=== PATIENT | male | born 1970 | race Caucasian/White ===

== ENCOUNTER → 2020-05-06 13:31 | Outpatient (CLI) | payer OTHER, SELFPAY ==
--- NOTE | 2020-05-06 13:33 | DI.RAD.S_ITS ---
PROCEDURE: XR KNEE RT 3V INDICATIONS: rt knee pain chronic surgery 20 years ago TECHNIQUE: 3 views of the knee were acquired. COMPARISON: None. FINDINGS: Bones: There is moderate medial femorotibial compartment narrowing. No acute fracture or dislocation. There is moderate patellofemoral narrowing. There are small tricompartmental osteophytes. Soft tissues: No joint effusion. No suspicious soft tissue calcifications. IMPRESSION: Moderate to severe osteoarthritis. Dictated by: Fabiola Wyatt M.D. on 05/06/2020 at 16:22 Approved by: Fabiola Wyatt M.D. on 05/06/2020 at 16:23
== END ==
PROVIDERS: Family Provider Family Medicine; PCP Family Medicine; Referring Provider Family Medicine; Visit Provider Family Medicine
DX: M25.561 Pain in right knee (principal); M17.11 Unilateral primary osteoarthritis, right knee; G89.29 Other chronic pain
CPT/HCPCS: 73562

== ENCOUNTER → 2023-06-15 12:03 | Outpatient (CLI) | payer OTHER, SELFPAY ==
--- NOTE | 2023-06-15 12:05 | DI.RAD.S_ITS ---
PROCEDURE: XR CERVICAL SPINE 2V OR 3V INDICATIONS: chronic neck pain viki L side TECHNIQUE: 3 view(s) of the cervical spine were acquired. COMPARISON: None. FINDINGS: Bones: No fractures or dislocations to the T1 level. The lateral masses of C1 appear intact on the odontoid view. No suspicious bony lesions. Minimal anterolisthesis of C5 on C6. Multilevel cervical spondylosis with degenerative endplate changes, mild disc space loss, and endplate osteophyte formation. Findings are most pronounced at C3-4, C4-5, and C5-6. Multilevel facet arthropathy most pronounced at C4-5 and C5-6. Craniocervical junction is intact. Soft tissues: No prevertebral soft tissue swelling. IMPRESSION: Cervical spine without acute fracture. Minimal anterolisthesis of C5 on C6 likely related to spondylitic changes. Multilevel cervical spondylosis most pronounced from C3-4 through C5-6. Dictated by: Emmett Rivera M.D. on 06/15/2023 at 14:01 Approved by: Emmett Rivera M.D. on 06/15/2023 at 14:03
== END ==
PROVIDERS: Family Provider Family Medicine; PCP Family Medicine; Referring Provider Physician Assistant; Visit Provider Physician Assistant
DX: G44.209 Tension-type headache, unspecified, not intractable (principal); M54.2 Cervicalgia; M47.812 Spondylosis without myelopathy or radiculopathy, cervical region; Z13.1 Encounter for screening for diabetes mellitus
CPT/HCPCS: 72040

== ENCOUNTER → 2023-06-22 07:22 | Outpatient (CLI) | payer OTHER, SELFPAY ==
[2023-06-22 07:50] LABS: Add Manual Diff / Slide Review NO; Basophils Absolute Auto 0 /uL (0-100); Basophils Percent Auto 0.7 % (0-2); Eosinophils Absolute Auto 200 /uL (0-450); Hematocrit 44.6 % (41-53); Lymphocytes Absolute Auto 3500 /uL (1100-4500); Lymphocytes Percent Auto 55.3 % (25-40); Mean Corpuscular HGB Conc 33.7 % (30-36); Mean Corpuscular Hemoglobin 31.2 PG (26-34); Mean Corpuscular Volume 92.7 fL (80-100); Monocytes Absolute Auto 700 /uL (0-900); Monocytes Percent Auto 11.1 % (3-14); Neutrophils Absolute Auto 1900 /uL (1500-7000); Neutrophils Percent Auto 29.9 % (50-75); Platelet Count 345 X10^3/uL (150-400); Red Blood Cell Count 4.81 X10^6/uL (4.5-5.9); Red Cell Distribution Width 13.8 % (11.6-14.8); White Blood Cell Count 6.3 X10^3/uL (4.5-11.0)
[2023-06-22 07:59] LABS: Hemoglobin A1C% w Est Avg Glu 5.9 % (4.0-6.0)
[2023-06-22 08:04] LABS: Alanine Aminotransferase 43 IU/L (<50); Albumin 4.1 g/dL (3.5-5.0); Albumin Globulin Ratio 1.2 (1.0-2.8); Alkaline Phosphatase 54 U/L (38-126); Aspartate Aminotransferase 32 IU/L (17-59); Bilirubin Total 0.7 mg/dL (0.2-1.3); Blood Urea Nitrogen 26 mg/dL (9-20); Calcium 9.6 mg/dL (8.4-10.2); Carbon Dioxide 28 mmol/L (22-32); Chloride 105 mmol/L (98-107); Cholesterol 180 mg/dL (140-199); Estimated Glomerular Filt Rate > 60 mL/min (>60); Globulin 3.5 g/dL (1.7-4.1); Glucose 100 mg/dL (70-100); HDL Cholesterol 43 mg/dL (40-60); HEMOLYSIS < 15 (0-50); LDL Cholesterol Calculated 113 mg/dL (<100); Potassium 5.2 mmol/L (3.4-5.1); Sodium 139 mmol/L (137-145); Total Protein 7.6 g/dL (6.3-8.2); Triglycerides 118 mg/dL (35-150)
[2023-06-22 08:35] LABS: TSH w/ Reflex to FT4 1.91 uIU/mL (0.47-4.68)
== END ==
PROVIDERS: Family Provider Family Medicine; PCP Family Medicine; Referring Provider Physician Assistant; Visit Provider Physician Assistant
DX: Z13.1 Encounter for screening for diabetes mellitus (principal); G44.209 Tension-type headache, unspecified, not intractable; M54.2 Cervicalgia
CPT/HCPCS: 36415; 80053; 80061; 83036; 84443; 85025

== ENCOUNTER 2023-08-31 12:02 | Day surgery (SDC) | payer OTHER, SELFPAY ==
--- NOTE | 2023-08-31 | PATH_ITS ---
[facility] Accession Number: [id number] No. of containers..05 Tissue . 01 Material submitted: . PART A: duodenum - DUODENUM PART B: stomach - ANTRUM PART C: stomach - FUNDUS BIOPSY PART D: esophagus, E-G Junction - GE JUNCTION PART E: rectum - RECTAL POLYP . 01 Diagnosis: A. DUODENUM, BIOPSY: Duodenal mucosa with no diagnostic abnormality. Negative for active inflammation, features of sprue, dysplasia, or malignancy. . B. ANTRUM, BIOPSY: Gastric mucosa with minimal chronic nonspecific inflammation. No Helicobacter pylori organisms identified on immunohistochemical evaluation. No intestinal metaplasia, dysplasia, or malignancy. . C. FUNDUS, BIOPSY: Gastric mucosa with focal mild active inflammation. No Helicobacter pylori organisms identified on immunohistochemical evaluation. No intestinal metaplasia, dysplasia, or malignancy. . D. GE JUNCTION, BIOPSY: Squamocolumnar junctional mucosa with proximal gastric glandular mucosa with goblet cell metaplasia. No dysplasia or malignancy. See comment. . E. RECTAL POLYP, BIOPSY: Colonic mucosa with benign lymphoid aggregate. No dysplasia or neoplasia identified. [facility] 09/04/2023 1136 Local . 01 Comment: D. 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 Correlation with the endoscopic appearance is recommended. . 01 Electronically signed: . Jade Connelly MD, Pathologist NPI- [id number] . 01 Gross description: . Part A: DUODENUM: Received in formalin is 2 fragment(s) of dsouza, soft tissue measuring 0.2 x 0.1 x 0.1 cm to 0.1 x 0.1 x 0.1 cm submitted entirely in 1 cassette(s) Part B: ANTRUM: Received in formalin is 3 fragment(s) of dsouza, soft tissue measuring 0.3 x 0.1 x 0.1 cm to 0.2 x 0.1 x 0.1 cm submitted entirely in 1 cassette(s) Part C: FUNDUS BIOPSY: Received in formalin is 3 fragment(s) of dsouza, soft tissue measuring 0.2 x 0.1 x 0.1 cm to 0.1 x 0.1 x 0.1 cm submitted entirely in 1 cassette(s) Part D: GE JUNCTION : Received in formalin is 2 fragment(s) of dsouza, soft tissue measuring 0.2 x 0.2 x 0.1 cm to 0.2 x 0.1 x 0.1 cm submitted entirely in 1 cassette(s) Part E: RECTAL POLYP : Received in formalin is 1 fragment(s) of dsouza, soft tissue measuring 0.2 x 0.1 x 0.1 cm submitted entirely in 1 cassette(s) /AAY 09/01/2023 0449 Local . 01 Microscopic: . B. An immunohistochemical stain was performed to evaluate for Helicobacter organisms and is negative. The control stain showed appropriate reactivity. . C. An immunohistochemical stain was performed to evaluate for Helicobacter organisms and is negative. The control stain showed appropriate reactivity. . . * This test was developed and its performance characteristics determined by [facility]. It has not been cleared or approved by the U.S. Food and Drug Administration. The FDA has determined that such clearance or approval is not necessary. This test is used for clinical purposes. It should not be regarded as investigational or for research. . 01 Pathologist provided ICD-10: K29.30, K29.70, K22.70, K63.89 . 01 CPT . 420533, 644087, 881508, 488291, 520958, G30462, [id number] Specimen Comment: A courtesy copy of this report has been sent to [phone] Performed at: 01 [facility] [address] [place] [address] [address] [facility], [place], [place] [id number] MD Amrit Haney MD Phone: [phone]
[2023-08-31 12:19] VITALS: BMI 48.7
[2023-08-31 12:23] VITALS: BP 152/83; PULSE 97; RESP 18; TEMP 36.4; O2SAT 97
--- NOTE | 2023-08-31 12:54 | PM.HP.1 ---
History of Present Illness History of Present Illness Date Patient Seen: 08/31/23 Time Patient Seen: 12:54 Chief complaint: EGD/Colonoscopy Narrative: Sushant is a 53-year-old man who is here for a EGD and colonoscopy for symptoms of dyspepsia and due for colon cancer screening. Please see the office note from June for details. No changes since then. PFS Surgical History Status post knee surgery History of splenectomy Status post appendectomy Social History marital status: Smoking Status: Never smoker alcohol intake: current substance use type: does not use Meds Home Medications and Allergies Home Medications Medication Instructions Recorded Confirmed Type omeprazole 20 mg capsule,delayed 20 mg PO QDAY@0600 #90 tabs 02/28/17 07/24/23 Rx release cyclobenzaprine 10 mg tablet 10 mg PO TID #30 tabs 06/15/23 07/24/23 Rx meloxicam 15 mg tablet 15 mg PO DAILY #30 tabs 06/15/23 07/24/23 Rx cdjfhje-rhjqgmstjudcc-xyaqiitd 250 2 tab PO Q6H PRN 07/13/23 07/24/23 History mg-250 mg-65 mg tablet (Excedrin Migraine) eletriptan 20 mg tablet See Rx Instructions PO .COMPLEX 07/13/23 07/24/23 Rx #14 tabs sodium sul 1.479 gram-potas ch See Rx Instructions PO PER PKG DIR 07/24/23 Rx 0.188 gram-magnes sul 0.225 gram #24 tabs tablet (Sutab) Allergies Allergy/AdvReac Type Severity Reaction Status Date / Time No Known Allergies Allergy Uncoded 07/24/23 15:42 Exam Vital Signs (past 8 hours): - 08/31/23 12:23 Temperature 97.6 F Pulse Rate 97 H Respiratory Rate 18 Blood Pressure 152/83 H Pulse Oximetry 97 Oxygen Delivery Method Room Air Oxygen Delivery Method Room Air Const Nutritional Appearance: obese Assessment & Plan Assessment and plan (1) Colon cancer screening: Status: Acute (2) Dyspepsia: Status: Acute Plan We reviewed the risks and benefits of EGD and colonoscopy and he would like to proceed.
[2023-08-31 13:45] VITALS: BP 112/78; PULSE 66; RESP 16; TEMP 36.2; O2SAT 99
--- NOTE | 2023-08-31 13:48 | PM.OP.EC ---
Operative Date/Time/Diagnoses Date of procedure: 08/31/23 Time of procedure: 13:48 Pre-op diagnosis: Dysphagia and colon cancer screening Post-op diagnosis: same Procedure & Clinicians Study performed: EGD and colonoscopy Same procedure as scheduled: Yes Surgeon: Ayaan Panda Procedure Notes Procedure in detail: Surgeon: Ayaan Panda MD Anesthesia: Ugo Alvarenga MD Procedure in detail: A timeout was performed. A bite blocked was placed and monitors were attached to the patient. The patient was positioned in the left lateral decubitus position. Sedation was administered. Once the patient was sedated the endoscope was inserted through the bite block and passed through the esophagus and stomach and into the duodenum. The second portion of the duodenal appeared normal however random biopsies were taken. We then withdrew the scope into the stomach. There was moderate antritis without any obvious ulceration. Biopsies were taken from the antrum. There was some gastritis near the fundus and biopsies were taken. The endoscope was retroflexed and no hiatal hernia was seen. The endoscope was straightned and withdrawn into the esophagus. There was some salmon-colored patches of mucosa near the GE junction and biopsies were taken from the GE junction. EGD findings: Antritis, gastritis and salmon-colored patches of mucosa at the GE junction Next we repositioned the patient for a colonoscopy. A digital rectal exam was performed and was normal. The colonoscope was inserted and advanced to the cecum. The appendiceal orifice was identified and photographed. The scope was slowly withdrawn over greater than 6 minutes. There was a 5 mm polyp in the upper rectum removed with a cold snare. The scope was retroflexed in the rectum and no other abnormalities were found. Colonoscopy findings: 5 mm polyp in the rectum Total procedural EBL: 5 mL Scope withdrawal time: 9 minutes Sedation minutes: 38 minutes Post-procedure Disposition: PACU
[2023-08-31 13:50] VITALS: BP 112/78; PULSE 68; RESP 16; TEMP 36.2; O2SAT 98
[2023-08-31 13:55] VITALS: BP 110/78; PULSE 60; RESP 16; O2SAT 98
[2023-08-31 14:00] VITALS: BP 112/78; PULSE 59; RESP 16; TEMP 36.8; O2SAT 98
== END 2023-08-31 14:20 | disposition home or self-care (01) ==
PROVIDERS: Family Provider Family Medicine; PCP Family Medicine; Referring Provider Surgery; Visit Provider Surgery
PROC: 0DJ08ZZ Inspection of Upper Intestinal Tract, Via Natural or Artificial Opening Endoscopic (ICD-10-PCS; CPT 43235; principal; 2023-08-31 13:00)
PROC: 0DJD8ZZ Inspection of Lower Intestinal Tract, Via Natural or Artificial Opening Endoscopic (ICD-10-PCS; CPT 45378; 2023-08-31 13:00)
DX: Z12.11 Encounter for screening for malignant neoplasm of colon (principal); R10.13 Epigastric pain; K29.50 Unspecified chronic gastritis without bleeding; K22.70 Barrett's esophagus without dysplasia; K62.1 Rectal polyp
CPT/HCPCS: 45385; 43239; J2704

== ENCOUNTER → 2024-04-05 15:01 | Outpatient (CLI) | payer OTHER, SELFPAY ==
[2024-04-05 16:49] LABS: Hemoglobin A1C% w Est Avg Glu 5.7 % (4.0-6.0)
[2024-04-05 17:08] LABS: Alanine Aminotransferase 33 IU/L (<50); Albumin 4.1 g/dL (3.5-5.0); Albumin Globulin Ratio 1.2 (1.0-2.8); Alkaline Phosphatase 50 U/L (38-126); Aspartate Aminotransferase 30 IU/L (17-59); BUN Creatinine Ratio 25.5 (6-22); Bilirubin Total 0.4 mg/dL (0.2-1.3); Blood Urea Nitrogen 28 mg/dL (9-20); Calcium 9.6 mg/dL (8.4-10.2); Carbon Dioxide 28 mmol/L (22-32); Chloride 103 mmol/L (98-107); Estimated Glomerular Filt Rate > 60 mL/min (>60); Globulin 3.5 g/dL (1.7-4.1); Glucose 89 mg/dL (70-100); HEMOLYSIS < 15 (0-50); Potassium 4.8 mmol/L (3.4-5.1); Sodium 138 mmol/L (137-145); Total Protein 7.6 g/dL (6.3-8.2)
== END ==
PROVIDERS: Family Provider Family Medicine; PCP Family Medicine; Referring Provider Student in an Organized Health Care Education/Training Program; Visit Provider Student in an Organized Health Care Education/Training Program
DX: R73.03 Prediabetes (principal); E66.01 Morbid (severe) obesity due to excess calories
CPT/HCPCS: 36415; 80053; 83036

== ENCOUNTER → 2025-05-30 14:33 | Outpatient (CLI) | payer BC, SELFPAY ==
--- NOTE | 2025-05-30 14:34 | EKG_ITS ---
[facility] [address] [place] [address] Test Date: 2025-05-30 Pat Name: Sushant Maier Department: Room: Gender: Male [employer]: : 1970 Requested By: Order Number: [id number] Reading MD: Odin Duarte MD Measurements Intervals [place] Rate: 61 P: 23 IA: 186 QRS: 7 QRSD: 100 T: 5 QT: 424 QTc: 426 Interpretive Statements Normal sinus rhythm Electronically Signed On 05-31-2025 9:28:13 PST by Odin Duarte MD
[2025-05-30 15:12] LABS: Add Manual Diff / Slide Review NO; Hematocrit 40.3 % (41-53); Hemoglobin 13.7 g/dL (13.5-17.5); Lymphocytes Absolute Auto 3900 /uL (1100-4500); Mean Corpuscular HGB Conc 34.0 % (30-36); Mean Corpuscular Hemoglobin 31.0 PG (26-34); Mean Corpuscular Volume 91.3 fL (80-100); Platelet Count 322 X10^3/uL (150-400)
[2025-05-30 15:27] LABS: Albumin 4.3 g/dL (3.5-5.0); Blood Urea Nitrogen 28 mg/dL (9-20); Calcium 9.2 mg/dL (8.4-10.2); Carbon Dioxide 26 mmol/L (22-32); Chloride 106 mmol/L (98-107); Estimated Glomerular Filt Rate > 60 mL/min (>60); Glucose 89 mg/dL (70-99); HEMOLYSIS < 15 (0-50); Potassium 4.5 mmol/L (3.4-5.1); Sodium 141 mmol/L (137-145)
[2025-05-30 15:29] LABS: Hemoglobin A1C% w Est Avg Glu 5.5 % (4.0-6.0)
[2025-05-30 15:37] LABS: Prealbumin 26.6 mg/dL (17.6-36.0)
[2025-05-30 15:50] LABS: Vitamin D 25 Hydroxy (D3) 27.2 ng/mL (30.0-100.0)
== END ==
PROVIDERS: PCP Family Medicine; Referring Provider Orthopaedic Surgery Adult Reconstructive Orthopaedic Surgery; Visit Provider Orthopaedic Surgery Adult Reconstructive Orthopaedic Surgery
DX: M25.561 Pain in right knee (principal)
CPT/HCPCS: 36415; 80048; 82040; 82306; 83036; 84134; 85025; 93005; 93010